=== PATIENT | female | born 1985 | race Hispanic/Latino ===

== ENCOUNTER 2018-02-27 20:28 | Emergency (ER) | payer SELFPAY | END 2018-02-27 21:07 | disposition home or self-care (01) | LOC: EDH 20:28 | DX: H92.01 Otalgia, right ear (principal); J30.2 Other seasonal allergic rhinitis ==

== ENCOUNTER 2018-10-06 22:12 | Emergency (ER) | payer OTHER, SELFPAY ==
[2018-10-06] MEDS ORDERED: DEXAMETHASONE SOD PHOSPHATE 10MG/ML 1ML VIAL ONE (22:35)
[2018-10-06] MEDS ORDERED: IPRATROPIUM/ALBUTEROL SULFATE 3 ML SOLUTION IH ONE (22:46)
== END 2018-10-06 23:47 | disposition home or self-care (01) ==
LOC: EDH 22:12
DX: J20.9 Acute bronchitis, unspecified (principal)
CPT/HCPCS: 71045; 81025; 94640; 96372; 99285; J1100

== ENCOUNTER 2019-04-02 22:35 | Emergency (ER) | payer OTHER | END 2019-04-03 00:04 | disposition home or self-care (01) | LOC: EDH 22:35 | DX: M54.5 Low back pain (principal); M54.6 Pain in thoracic spine; Z98.890 Other specified postprocedural states | CPT/HCPCS: 99281 ==

== ENCOUNTER 2019-10-26 03:44 | Emergency (ER) | payer MEDICAID, OTHER ==
[2019-10-26 04:09] LABS: BASOPHILS % (AUTO) 0.5 % (0.0-5.0); EOSINOPHILS % (AUTO) 1.6 % (0.0-8.0); HEMATOCRIT 38.9 % (36-48); LYMPHOCYTES % (AUTO) 21.1 % (21.0-51.0); MEAN CORPUSCULAR HEMOGLOBIN 28.4 pg (27.0-33.0); MEAN CORPUSCULAR HGB CONC 32.6 g/dL (32.0-36.0); MONOCYTES % (AUTO) 4.1 % (3.0-13.0); NEUTROPHILS % (AUTO) 72.5 % (40.0-77.0); PLATELET COUNT (AUTO) 314 K/uL (130-400); RED BLOOD CELL COUNT(AUTO) 4.47 MIL/uL (4.00-5.50); RED CELL DISTRIBUTION WIDTH 13.3 % (11.0-15.5); WHITE BLOOD COUNT (AUTO) 9.4 K/uL (4.8-10.8)
[2019-10-26 04:12] LABS: APPEARANCE,URINE Cloudy (CLEAR); BILIRUBIN,URINE Negative (NEGATIVE); COLOR,URINE Yellow (YELLOW); GLUCOSE, URINE (UA) Negative (NEGATIVE); KETONES,URINE Negative (NEGATIVE); LEUKOCYTE ESTERASE ,URINE Small (NEGATIVE); NITRATE,URINE Negative (NEGATIVE); OCCULT BLOOD,URINE Negative (NEGATIVE); PROTEIN,URINE Negative (NEGATIVE)
[2019-10-26 04:14] LABS: HCG,QUAL RESULT NEGATIVE (NEGATIVE)
[2019-10-26 04:22] LABS: CREATININE 0.7 mg/dL (0.5-1.5); POTASSIUM 3.4 mmol/L (3.5-5.1)
[2019-10-26] MEDS ORDERED: ONDANSETRON HCL 4 MG/2 ML VIAL ONE (04:22)
[2019-10-26] MEDS ORDERED: KETOROLAC TROMETHAMINE 30MG/ML ONE (04:23)
[2019-10-26 04:27] LABS: BACTERIA,URINE Moderate /HPF (None Seen); RBC,URINE 0-1 /HPF (0-1); TRICHOMONAS,URINE Moderate /LPF (None Seen)
[2019-10-26 04:34] LABS: ALBUMIN 3.8 g/dL (3.5-5.0); BILIRUBIN,TOTAL 0.3 mg/dL (0.2-1.0); TOTAL PROTEIN, SERUM 7.3 g/dL (6.0-8.3)
[2019-10-26] MEDS ORDERED: IOHEXOL-350 75 ML VIAL IV ONE (06:16)
[2019-10-26] MEDS ORDERED: MORPHINE SULFATE 4 MG/1ML SYG ONE (06:58)
== END 2019-10-26 07:56 | disposition home or self-care (01) ==
LOC: EDH 03:44
DX: K80.50 Calculus of bile duct without cholangitis or cholecystitis without obstruction (principal); N39.0 Urinary tract infection, site not specified; R10.10 Upper abdominal pain, unspecified; Z98.890 Other specified postprocedural states
CPT/HCPCS: 36415; 74177; 76705; 80053; 81001; 81025; 83690; 84478; 85025; 87088; 93005; 96374; 96375; 99285; J1885; J2270; J2405; Q9967

== ENCOUNTER 2019-11-08 06:32 | Emergency (ER) | payer MEDICAID | END 2019-11-08 08:10 | disposition home or self-care (01) | LOC: EDH 06:32 | DX: M25.562 Pain in left knee (principal); W18.39XA Other fall on same level, initial encounter; Y93.89 Activity, other specified; Y92.89 Other specified places as the place of occurrence of the external cause; Y99.8 Other external cause status; Z98.890 Other specified postprocedural states | CPT/HCPCS: 29505; 73562 ==

== ENCOUNTER → 2019-12-02 | Outpatient (CLI) | payer MEDICAID | END | disposition home or self-care (01) | LOC: RAH 08:45 | PROVIDERS: ATTEND Family Medicine | DX: M25.562 Pain in left knee (principal) | CPT/HCPCS: 73721 ==